=== PATIENT | male | born 1985 | race Caucasian/White ===

== ENCOUNTER 2017-04-15 20:31 | Day surgery (SDC) | payer SELFPAY ==
[2017-04-15] MEDS ORDERED: Glucagon,Human Recombinant 1 MG Vial IVPUSH ONE (20:44)
--- NOTE | 2017-04-15 20:51 | EDM.PDOC ---
ED HPI GENERAL MEDICAL PROBLEM - General Chief Complaint: ENT Problem Stated Complaint: PT HAS OBJECT STUCK IN THROAT Time Seen by Provider: 04/15/17 20:38 Source of Information: Reports: Patient History Limitations: Reports: No Limitations - History of Present Illness INITIAL COMMENTS - FREE TEXT/NARRATIVE: HISTORY AND PHYSICAL: History of present illness: Patient is a 32-year-old male who presents to the emergency room with complaints of a food bolus stuck in his esophagus. He states he was eating a sandwich around 6:30 when he felt the sensation of food stuck in his throat. He states he has tried to drink water and is unable to swallow it down. Unable to swallow his saliva. He is having no difficulty breathing and appears in no acute distress. Patient reports that he has had similar episodes in the past but usually with time he is able to "get it down on his own" after several hours of waiting. He has never had an EGD or scope done previous. Review of systems: As per history of present illness and below otherwise all systems reviewed and negative. Past medical history: As per history of present illness and as reviewed below otherwise noncontributory. Surgical history: As per history of present illness and as reviewed below otherwise noncontributory. Social history: No reported history of drug or alcohol abuse. Family history: As per history of present illness and as reviewed below otherwise noncontributory. Physical exam: General: Well-developed and well-nourished 32-year-old male. Alert and oriented. Appears in no acute distress. HEENT: Atraumatic, normocephalic, pupils reactive, negative for conjunctival pallor or scleral icterus, mucous membranes moist, throat clear, neck supple, nontender, trachea midline. Lungs: Clear to auscultation, breath sounds equal bilaterally, chest nontender. Heart: S1S2, regular rate and rhythm Abdomen: Soft, nondistended, nontender. Negative for masses or hepatosplenomegaly. Negative for costovertebral tenderness. Pelvis: Stable nontender. Genitourinary: Deferred. Rectal: Deferred. Extremities: Atraumatic, moves all extremities, negative for cords or calf pain. Neurovascular unremarkable. Neuro: Awake, alert, oriented. Cranial nerves II through XII unremarkable. Cerebellum unremarkable. Motor and sensory unremarkable throughout. Exam nonfocal. 30 minutes post Glucagon, the FB still has not gone down. Patient reports he is unable to swallow his saliva still. VSS, breathes easily. Dr Bynum was consulted on this case and will see the patient. Dr Bynum is in with patient for evaluation. He plans to take patient to OR. Diagnostics: [] Therapeutics: Glucagon IV Impression: #1 Esophageal food bolus Plan: Dr. Bynum plans to take the patient for an EGD. The appropriate paperwork has been given to the surgeon and patient. Definitive disposition and diagnosis as appropriate pending reevaluation and review of above. Onset: Today Duration: Hour(s): Location: Reports: Neck Improves with: Reports: None Worsens with: Reports: Other Associated Symptoms: Reports: No Other Symptoms - Related Data Allergies Allergy/AdvReac Type Severity Reaction Status Date / Time No Known Allergies Allergy Verified 04/15/17 20:37 Home Meds: Home Meds . [No Known Home Meds] 04/15/17 [History] Past Medical History - Past Health History Medical/Surgical History: Denies Medical/Surgical History Social & Family History - Family History Family Medical History: Noncontributory - Tobacco Use Smoking Status *Q: Never Smoker - Recreational Drug Use Recreational Drug Use: No ED ROS ENT - Review of Systems Review Of Systems: ROS reveals no pertinent complaints other than HPI. ED EXAM, ENT - Physical Exam Exam: See Below (See dictation) Course - Vital Signs Last Recorded V/S: Last Vital Signs Temp 97.9 F 04/15/17 20:31 Pulse 73 04/15/17 21:26 Resp 18 04/15/17 21:26 BP 131/78 04/15/17 21:26 Pulse Ox 98 04/15/17 21:26 - Orders/Labs/Meds Meds: Medications Discontinued Medications Generic Name Dose Route Start Last Admin Trade Name Freq PRN Reason Stop Dose Admin Glucagon 1 mg 04/15/17 20:44 04/15/17 20:56 Glucagen IVPUSH 04/15/17 20:45 1 mg ONETIME ONE Administration Departure - Departure Time of Disposition: 21:51 Disposition: Still A Patient 30 Clinical Impression: Esophageal foreign body - Discharge Information Referrals: PCP,None [Primary Care Provider] - Forms: ED Department Discharge
[2017-04-15] MEDS ORDERED: Lactated Ringers 1,000 ML IV SCH ×2 (22:00→23:00)
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
[2017-04-15] MEDS ORDERED: Propofol 200 MG/20 ML SDV ONE ×2 (22:19→22:42)
[2017-04-15] MEDS ORDERED: Ondansetron 4 MG/2 ML SDV ONE (22:20)
[2017-04-15] MEDS ORDERED: Rocuronium 10 MG/ML 10 ML Syringe ONE (22:20)
[2017-04-15] MEDS ORDERED: Succinylcholine/Normal Saline 200 MG/10 ML Syringe ONE (22:20)
[2017-04-15] MEDS ORDERED: fentaNYL 100 MCG/2 ML SDV ONE (22:20)
[2017-04-15] MEDS ORDERED: diphenhydrAMINE 50 MG/ML SDV ONE (22:20)
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
--- NOTE | 2017-04-15 23:07 | PCM.OPNOTE ---
- General Post-Op/Procedure Note Date of Surgery/Procedure: 04/15/17 Operative Procedure(s): Esophagogastroduodenoscopy with foreign body removal and gastric antral biopsies Pre Op Diagnosis: Foreign body obstruction of the esophagus Post-Op Diagnosis: Foreign body obstruction of the esophagus. Acute gastritis. Acute esophagitis. Anesthesia Technique: General ET Tube (ASA IE) Primary Surgeon: Cali Bynum Condition: Fair Free Text/Narrative:: Dictation [id number] CPT CODE [id number]
--- NOTE | 2017-04-15 23:23 | PCM.POSTAN ---
POST ANESTHESIA ASSESSMENT - MENTAL STATUS Mental Status: Alert, Oriented - VITAL SIGNS Pulse Rate: 85 SaO2: 99 Resp Rate: 14 Blood Pressure: 126/80 - RESPIRATORY Respiratory Status: Respiratory Rate WNL, Airway Patent, O2 Saturation Stable - CARDIOVASCULAR CV Status: Pulse Rate WNL, Blood Pressure Stable - GASTROINTESTINAL GI Status: No Symptoms - POST OP HYDRATION Hydration Status: Adequate & Stable (coughing occasionally from the throat irritation)
--- NOTE | 2017-04-16 01:15 | OR ---
SURGEON: Cali Bynum M.D. DATE OF PROCEDURE: 04/15/2017 OPERATION PERFORMED: Esophagogastroduodenoscopy with foreign body removal of the esophagus and antral biopsies. PREOPERATIVE DIAGNOSIS: Foreign body obstruction of the esophagus. POSTOPERATIVE DIAGNOSIS: Foreign body obstruction of the esophagus with esophagitis and gastritis. ANESTHESIA: General endotracheal. ASA CLASSIFICATION: IE. DESCRIPTION OF PROCEDURE: The patient was taken to the operating room and placed on the operating table in the supine position. Time-out was called for appropriate identification of the patient and procedure. Following satisfactory attainment of general endotracheal anesthesia, the bite block was placed between the patient's teeth. The gastroscope was inserted into the mouth and advanced into the oropharynx. This was subsequently advanced into the esophagus down to the foreign body obstruction which was at the distal esophagus. Attempts were made to retrieve this using the 3-prong grasper and the biopsy forceps. Eventually, I was able to break this up into small enough pieces that I could advance it into the stomach. Once we were in the stomach, the gastroscope was advanced through the pylorus into the duodenum where examination was carried out in a retrograde fashion. The duodenum shows no acute inflammatory changes or ulcerations. The stomach does show a very moderate acute gastritis. Antral biopsies were obtained to look for the presence of Helicobacter pylori. The gastroscope was retroflexed to visualize the proximal stomach. I did not see any significant hiatal hernia. After antral biopsies were obtained, the scope was slowly withdrawn aspirating the stomach as the scope was removed. The distal esophagus does show a rather acute esophagitis consistent with trauma from a foreign body in the form of a food bolus as well as the attempts to remove this. I did not see any evidence of a perforation. There was no acute bleeding coming from the esophagus. The mid and proximal esophagus appear normal. Vocal cords were not visualized as the patient was under general endotracheal anesthesia. The scope was then removed with the patient having tolerated the procedure well. Following emergence from anesthesia and extubation, he was taken to recovery room in stable condition. ARBEN / TAYE /[id number]
== END 2017-04-16 00:58 | disposition home or self-care (01) ==
LOC: MW.ED 20:31 → MW.SDS 21:50
PROVIDERS: ATTEND Surgery
DX: T18.128A Food in esophagus causing other injury, initial encounter (principal); K29.50 Unspecified chronic gastritis without bleeding
CPT/HCPCS: 43239; 43247; 96374; 99284; J1200; J1610; J2405; J3010; J7120; J2704

== ENCOUNTER 2021-12-11 15:05 | Day surgery (SDC) | payer OTHER ==
[2021-12-11] MEDS ORDERED: Sodium Chloride 0.9% 2.5 ML Syringe FLUSH PRN (15:08)
[2021-12-11] MEDS ORDERED: Sodium Chloride 0.9% 10 ML Syringe FLUSH PRN (15:08)
[2021-12-11] MEDS ORDERED: Glucagon,Human Recombinant 1 MG Vial IVPUSH ONE (15:13)
[2021-12-11] MEDS ORDERED: Lactated Ringers 1,000 ML IV SCH ×3 (15:15→17:45)
[2021-12-11] MEDS ORDERED: Succinylcholine/Sod PF 100 MG/5 ML SYRINGE IV ONE (16:29)
[2021-12-11] MEDS ORDERED: Dexamethasone 4 MG/ML 5 ML MDV ONE (16:29)
[2021-12-11] MEDS ORDERED: Ondansetron 4 MG/2 ML SDV ONE (16:29)
[2021-12-11] MEDS ORDERED: Lidocaine 2% 5 ML SDV ONE (16:29)
[2021-12-11] MEDS ORDERED: Propofol 200 MG/20 ML SDV ONE (16:30)
[2021-12-11] MEDS ORDERED: fentaNYL 100 MCG/2 ML SDV ONE ×2 (16:30→17:08)
[2021-12-11] MEDS ORDERED: Midazolam 1 MG/ML 2 ML SDV ONE (16:30)
[2021-12-11] MEDS ORDERED: Glycopyrrolate 0.2 MG/ML SDV ONE (17:07)
== END 2021-12-11 20:15 | disposition home or self-care (01) ==
LOC: MW.ED 15:05 → MW.SDS 16:06 → MW.MS 18:23 → MW.SDS 20:15
PROVIDERS: ATTEND Surgery
DX: K29.50 Unspecified chronic gastritis without bleeding (principal); T18.108A Unspecified foreign body in esophagus causing other injury, initial encounter; K20.90 Esophagitis, unspecified without bleeding; K22.0 Achalasia of cardia; Z98.890 Other specified postprocedural states; Z01.812 Encounter for preprocedural laboratory examination; Z20.822 Contact with and (suspected) exposure to COVID-19
CPT/HCPCS: 43239; 43247; 71045; 87635; 96361; 96374; 99284; J0330; J1100; J1610; J2250; J2405; J2704; J3010; J3490; J7120; 00731; 99283; U0002